=== PATIENT | female | born 1965 | race Caucasian/White ===

== ENCOUNTER 2022-09-17 11:15 | Outpatient (OUT) | payer OTHER, SELFPAY ==
[2022-09-17 12:16] LABS: Basophils Percent Auto 0.6 % (0.2-2.0); Eosinophils Absolute Auto 0.1 10^3/uL (0.0-0.7); Eosinophils Percent Auto 2.1 % (0.9-7.0); Hematocrit 38.3 % (36.0-48.0); Hemoglobin 12.3 g/dL (12.0-16.0); Immature Granulocytes Abs Auto 0.01 10^3/uL (0.00-0.03); Immature Granulocytes Pct Auto 0.3 % (0.0-0.5); Lymphocytes Absolute Auto 1.2 10^3/uL (1.2-3.8); Lymphocytes Percent Auto 36.7 % (20.5-60.0); Mean Corpuscular HGB Conc 32.1 g/dL (29.9-35.2); Mean Corpuscular Hemoglobin 30.3 pg (26.7-34.0); Mean Corpuscular Volume 94.3 fL (81.0-99.0); Mean Platelet Volume 10.6 fL (9.5-13.5); Monocytes Absolute Auto 0.3 10^3/uL (0.3-0.8); Monocytes Percent Auto 8.3 % (1.7-12.0); Neutrophils Absolute Auto 1.7 10^3/uL (1.4-6.5); Platelet Count 184 10^3/uL (150-450); Red Blood Count 4.06 10^6/uL (4.20-5.40); Red Cell Distribution Width 12.7 % (11.0-15.0); White Blood Count 3.3 10^3/uL (4.0-11.0)
[2022-09-17 12:24] LABS: Alanine Aminotransferase 36 U/L (14-59); Albumin Globulin Ratio 1.1; Albumin Level 4.1 g/dL (3.4-5.0); Alkaline Phosphatase 86 U/L (46-116); Anion Gap 10.2; Aspartate Amino Transferase 27 U/L (15-37); Bilirubin Total 0.7 mg/dL (0.2-1.0); Calcium 9.4 mg/dL (8.5-10.1); Carbon Dioxide 28.7 mmol/L (21.0-32.0); Chloride 104 mmol/L (98-107); Chol HDL Ratio 3.7; Cholesterol 200 mg/dL (<=200); Estimated GFR (African America >60 (>=60); Estimated GFR (Non-African Ame >60 (>=60); Globulin 3.8 g/dL; Glucose 92 mg/dL (74-106); HDL Cholesterol 54 mg/dL (40-60); LDL Cholesterol Calculated 122.8 mg/dL; Potassium 3.9 mmol/L (3.5-5.1); Sodium 139 mmol/L (136-145); Total Protein 7.9 g/dL (6.4-8.2); Triglycerides 116 mg/dL (<=150); VLDL CHOLESTEROL 23.2 mg/dL
[2022-09-17 12:43] LABS: Estimated Average Glucose 103 mg/dL; Glycohemoglobin A1C 5.2 % (4.5-6.2)
== END 2022-09-17 11:16 ==
PROVIDERS: PCP Family Medicine; Visit Provider Family Medicine
DX: Z00.00 Encounter for general adult medical examination without abnormal findings (principal)
CPT/HCPCS: 36415; 80053; 80061; 83036; 83540; 84436; 84443; 84481; 85025

== ENCOUNTER 2022-11-24 12:54 | Outpatient (OUT) | payer OTHER, SELFPAY ==
--- NOTE | 2022-11-24 12:58 | MM_ITS ---
Patient: ELVIS JONES Exam Date: 11/24/2022 : 1965 Gender:F Ordering : DR Lavell Russell . Admission #: [id number] Family : Order #: [id number] CLICK HERE TO VIEW EXAM RADIOLOGY REPORT PROCEDURE: MM TOMOSYNTHESIS SCREENING BI COMPARISON: MG MAMM SCREEN 3D JIMI CAD, 11/17/2021. MG MAMM SCREEN 3D JIMI CAD, 07/28/2020. MG MAMM SCREEN JIMI W CAD, 04/19/2018. MG MAMM JIMI SCRN W CAD DIG, 02/21/2013. INDICATIONS: Screening Calculator Name NCI Breast Cancer Risk Assessment Tool 5 Year Breast Cancer Risk 2.80% Lifetime Breast Cancer Risk 16.50% Personal Breast Cancer No Personal Ovarian Cancer No Treatments None Family Cancers Mother with breast cancer at age ~60; Brother with stomach cancer at age ~30. LOCATION: [facility] BREAST COMPOSITION: Extremely dense, which lowers the sensitivity of mammography. FINDINGS: DIAGNOSTIC CATEGORY 1--NEGATIVE. RIGHT BREAST: No significant suspicious finding. No significant change has occurred. LEFT BREAST: No significant suspicious finding. No significant change has occurred. RECOMMENDATIONS: ROUTINE MAMMOGRAM AND CLINICAL EVALUATION IN 12 MONTHS. PLEASE NOTE: A NORMAL MAMMOGRAM DOES NOT EXCLUDE THE POSSIBILITY OF BREAST CANCER. A CLINICALLY SUSPICIOUS PALPABLE LUMP SHOULD BE BIOPSIED. Dictated by: Danyel Arias M.D. on 11/24/2022 at 13:46 Approved by: Danyel Arias M.D. on 11/24/2022 at 13:47
== END 2022-11-24 12:55 | disposition home or self-care (01) ==
LOC: MAMMO 12:54
PROVIDERS: PCP Family Medicine; Visit Provider Family Medicine
DX: Z12.31 Encounter for screening mammogram for malignant neoplasm of breast (principal); Z80.3 Family history of malignant neoplasm of breast; Z80.0 Family history of malignant neoplasm of digestive organs
CPT/HCPCS: 77063; 77067

== ENCOUNTER 2023-09-20 11:09 | Outpatient (OUT) | payer OTHER, SELFPAY ==
[2023-09-20 11:29] LABS: Basophils Percent Auto 0.5 % (0.2-2.0); Eosinophils Absolute Auto 0.1 10^3/uL (0.0-0.7); Eosinophils Percent Auto 1.3 % (0.9-7.0); Hematocrit 40.4 % (36.0-48.0); Hemoglobin 13.2 g/dL (12.0-16.0); Immature Granulocytes Abs Auto 0.01 10^3/uL (0.00-0.03); Immature Granulocytes Pct Auto 0.3 % (0.0-0.5); Lymphocytes Absolute Auto 1.2 10^3/uL (1.2-3.8); Mean Corpuscular HGB Conc 32.7 g/dL (29.9-35.2); Mean Corpuscular Hemoglobin 30.3 pg (26.7-34.0); Mean Corpuscular Volume 92.9 fL (81.0-99.0); Mean Platelet Volume 10.6 fL (9.5-13.5); Monocytes Absolute Auto 0.3 10^3/uL (0.3-0.8); Neutrophils Absolute Auto 2.2 10^3/uL (1.4-6.5); Neutrophils Percent Auto 58.9 % (43.0-75.0); Platelet Count 181 10^3/uL (150-450); Red Blood Count 4.35 10^6/uL (4.20-5.40); Red Cell Distribution Width 12.4 % (11.0-15.0); White Blood Count 3.7 10^3/uL (4.0-11.0)
[2023-09-20 11:42] LABS: Estimated Average Glucose 105 mg/dL; Glycohemoglobin A1C 5.3 % (4.5-6.2)
[2023-09-20 12:09] LABS: Alanine Aminotransferase 38 U/L (14-59); Albumin Globulin Ratio 1.2; Albumin Level 4.2 g/dL (3.4-5.0); Alkaline Phosphatase 101 U/L (46-116); Anion Gap 12.1; Aspartate Amino Transferase 24 U/L (15-37); BUN Creatinine Ratio 17.8; Bilirubin Total 0.7 mg/dL (0.2-1.0); Calcium 9.4 mg/dL (8.5-10.1); Carbon Dioxide 29.3 mmol/L (21.0-32.0); Chloride 102 mmol/L (98-107); Chol HDL Ratio 4.3; Cholesterol 249 mg/dL (<=200); Estimated GFR (African America >60 (>=60); Estimated GFR (Non-African Ame 56 (>=60); Free T3 2.18 pg/mL (2.18-3.98); Globulin 3.6 g/dL; Glucose 87 mg/dL (74-106); HDL Cholesterol 58 mg/dL (40-60); Potassium 4.4 mmol/L (3.5-5.1); Sodium 139 mmol/L (136-145); Total Protein 7.8 g/dL (6.4-8.2); Triglycerides 109 mg/dL (<=150); VLDL CHOLESTEROL 21.8 mg/dL
== END 2023-09-20 11:10 | disposition home or self-care (01) ==
PROVIDERS: PCP Family Medicine; Visit Provider Family Medicine
DX: Z00.00 Encounter for general adult medical examination without abnormal findings (principal); E78.5 Hyperlipidemia, unspecified; R53.83 Other fatigue; R73.09 Other abnormal glucose; I10 Essential (primary) hypertension; D64.9 Anemia, unspecified; E03.9 Hypothyroidism, unspecified
CPT/HCPCS: 36415; 80053; 80061; 83036; 83540; 84436; 84443; 84481; 85025

== ENCOUNTER 2023-11-28 08:02 | Outpatient (OUT) | payer OTHER, SELFPAY ==
--- NOTE | 2023-11-28 08:04 | MM_ITS ---
Patient Name: ELVIS JONES MR#: [id number] : 1965 Exam Date: 11/28/2023 Ordering Doctor: DR Lavell Russell . RADIOLOGY REPORT PROCEDURE: MM TOMOSYNTHESIS SCREENING BI COMPARISON: MM TOMOSYNTHESIS SCREENING BI, 11/24/2022. MG MAMM SCREEN 3D JIMI CAD, 11/17/2021. INDICATIONS: Screening Calculator Name NCI Breast Cancer Risk Assessment Tool 5 Year Breast Cancer Risk 2.90% Lifetime Breast Cancer Risk 16.10% Personal Breast Cancer No Personal Ovarian Cancer No Treatments None Family Cancers Mother with breast cancer at age ~60; Brother with stomach cancer at age ~30. LOCATION: [facility] BREAST COMPOSITION: The breasts are extremely dense, which lowers the sensitivity of mammography. FINDINGS: DIAGNOSTIC CATEGORY 1--NEGATIVE. NO CHANGE FROM COMPARISON ASSESSMENT. Scattered benign-appearing lymph nodes are present. RIGHT BREAST: No significant suspicious finding. LEFT BREAST: No significant suspicious finding. RECOMMENDATIONS: ROUTINE MAMMOGRAM AND CLINICAL EVALUATION IN 12 MONTHS. PLEASE NOTE: A NORMAL MAMMOGRAM DOES NOT EXCLUDE THE POSSIBILITY OF BREAST CANCER. A CLINICALLY SUSPICIOUS PALPABLE LUMP SHOULD BE BIOPSIED. Dictated by: Garcia Carvajal MD on 11/28/2023 at 09:01 Approved by: Garcia Carvajal MD on 11/28/2023 at 09:02
--- OUTSIDE RECORDS SUMMARY | 2023-11-28 08:20 | XMS_ITS | CCD ---
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 Phone Yashira Alvarez Primary Care Physician Unavailable Primary Care Provider Unavailabl e DREW, DR AC Attending Unavailable DREW, DR AC Consulting Unavailable JYOTHIY, DR AC Primary Care Unavailable JYOTHIY, DR AC Admitting Unavailable ZIEBER, DR DANYEL Messer Consulting Unavailable JYOTHIY, DR AC Consulting Unavailable DREW, DR AC Primary Care Unavailable DREW, DR AC Admitting Unavailable DREW, DR AC Attending Unavailable HOY, DR AC Consulting Unavailable JYOTHIY, DR AC Primary Care Unavailable HOY, DR AC Admitting Unavailable HOY, DR AC Attending Unavailable HOY, DR AC Consulting Unavailable DREW, DR AC Primary Care Unavailable DREW, DR AC Admitting Unavailable DREW, DR AC Attending Unavailable Unavailable Primary Care Provider Unavailabl e Problems Active Problems Problem Classification Problem Date Documented Date Episodic/Chronic Allergic reactions (2 sources) Eczema 06-08-2021 Episodic Esophageal disorders (2 sources) Gastroesophageal reflux disease 06-08-2021 Chronic Neoplasms of unspecified nature or uncertain behavior (3 sources) Neoplasm of uncertain behavior of skin; Translations: [Neoplasm of uncertain behavior of skin] Onset: 07-07-2021 Episodic Other screening for suspected conditions (not mental disorders or infectious disease) (4 sources) Encounter for screening mammogram for malignant neoplasm of breast; Translations: [ENC SCR MAMMO MALIG NEOPLASM BREAST] Onset: 11-17-2021 Episodic Other skin disorders (1 source) Senile hyperkeratosis; Translations: [Other seborrheic keratosis] Onset: 07-14-2021 Episodic Residual codes; unclassified (1 source) Family history of malignant neoplasm of breast; Translations: [FAMILY HX MALIG NEOPLASM OF BREAST] Onset: 11-18-2021 Episodic Residual codes; unclassified (1 source) Family history of malignant neoplasm of digestive organs; Translations: [[facility] MALIG NEOPLASM DIGESTIV ORGN] Onset: 11-18-2021 Episodic Unclassified (2 sources) Body mass index 20-24 - normal 06-10-2021 Unclassified (1 source) Seborrheic keratosis 07-14-2021 Past or Other Problems Problem Classification Problem Date Documented Da te Episodic/Chronic Other liver diseases (4 sources) Abnormal levels of other serum enzymes; Translations: [ABNORMAL LEVELS OTHER SERUM ENZYMES] Onset: 06-10-2021 Episodic Results Test Name Value Interpretation Reference Range Facil ity MG MAMM SCREEN 3D JIMI CADon 11-17-2021 MG MAMM SCREEN 3D JIMI CAD Patient: MARIAA JONES. Exam Date: 11/17/2021 : 1965 Gender:F Ordering : DR YASHIRA ALVAREZ . Admission #: [id number] Family : Order #: [id number] CLICK HERE TO VIEW EXAM RADIOLOGY REPORT PROCEDURE: MAMMOGRAM SCREENING 3D BILATERAL CAD COMPARISON: MG MAMM SCREEN 3D JIMI CAD, 07/28/2020. MG MAMM SCREEN JIMI W CAD, 04/19/2018. INDICATIONS: Screening mammography Calculator Name NCI Breast Cancer Risk Assessment Tool 5 Year Breast Cancer Risk 2.70% Lifetime Breast Cancer Risk 16.80% Personal Breast Cancer No Personal Ovarian Cancer No Treatments None Family Cancers Mother with breast cancer at age 60; Brother with stomach cancer at age 30. LOCATION: [facility] BREAST COMPOSITION: Extremely dense, which lowers the sensitivity of mammography. FINDINGS: DIAGNOSTIC CATEGORY 2--BENIGN FINDING: RIGHT BREAST: No significant suspicious finding. No significant change has occurred. LEFT BREAST: No significant suspicious finding. Scattered benign-appearing lymph nodes are present. No significant change has occurred. RECOMMENDATIONS: ROUTINE MAMMOGRAM AND CLINICAL EVALUATION IN 12 MONTHS. PLEASE NOTE: A NORMAL MAMMOGRAM DOES NOT EXCLUDE THE POSSIBILITY OF BREAST CANCER. A CLINICALLY SUSPICIOUS PALPABLE LUMP SHOULD BE BIOPSIED. Dictated by: Danyel Arias M.D. on 11/17/2021 at 15:15 Approved by: Danyel Arias M.D. on 11/17/2021 at 15:21 Normal [facility] Ambulatory Visit Summaryon 0 07-14-2021 Ambulatory Visit Summary JOSE LUIS JONESINA M :1965 Visit Date:07/14/2021 Ambulatory Visit Instructions Your Diagnosis Seborrheic keratosis Your Care Team Attending Physician - RACHEL PAYNE, Rafi Messer Primary Care Physician - Yashira Alvarez MD Procedures Performed Excisional biopsy (07/07/2021), Extraction of wisdom tooth, Vaginal hysterectomy. Discharge Vitals Temperature (Temporal Artery) 36.3 ?C Allergies No Known Allergies No Known Medication Allergies Problems Ongoing - Any problem that you are currently receiving treatment for. 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 History of Present Illness 1 week s/p excisional biopsy of verrucous lesion of forehead, pathology with seborrheic keratosis; doing well, no pain or drainage. Review of Systems ROS - Provider Constitutional: no fever, no sweats, no weight loss. Eyes: no glasses, no blurred vision, no visual loss. ENMT: no dentures, no hoarseness, no swallowing difficulties, no hearing loss, no ear infection(s), no nose bleeds. Cardiovascular: normal blood pressure, no chest pain, regular heartbeat, no heart murmur. Respiratory: no shortness of breath, no cough, no asthma, no wheezing. Gastrointestinal: no nausea, no vomiting, no diarrhea, no constipation, no blood in stool, no change in bowel habits, no abdominal pain, no hepatitis. Genitourinary: no kidney stones, no urine infection, no dysuria. Musculoskeletal: no pain, no weakness. Skin: no changing moles, no rash, no skin lumps. Neurologic: no seizures, no epilepsy, no headache. Psychiatric: no emotional or psychiatric problem. Heme/Lymph: no bleeding problems, no anemia, no blood clots, no transfusions. Allergy/Immunologic: no swollen lymph nodes/glands, no IV drug abuse. Other: Additional ROS info: Except as noted in the above Review of Systems and in the History of Present Illness, all other systems have been reviewed and are negative or noncontributory. Physical Exam Vitals & Measurements T: 36.3 ?C(Temporal Artery) skin: incision healing well, no erythema or ecchymoses. Assessment/Plan 1. Seborrheic keratosis (L82.1: Other seborrheic keratosis) doing well, sutures removed, call with problems/questions. 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 Medications No active medications Allergies No Known Allergies No Known Medication Allergies Social History Alcohol - Denies Alcohol Use, 06/10/2021 Substance Abuse - Denies Substance Abuse, 06/10/2021 Tobacco Never (less than 100 in lifetime) Tobacco Use:. Never Smokeless Tobacco Use:., 06/10/2021 Family History Cardiac arrhythmia: Mother. Dementia: Father. Hypertension: Mother. NF - Neurofibromatosis: Father and Brother. Primary malignant neoplasm of female breast: Mother. Primary malignant neoplasm of prostate: Father. Immunizations Vaccine Date Status Comments influenza virus vaccine, inactivated - Not Given Patient Refuses Normal [facility] Comment on above: Result Comment: Elec tronically Signed By: Rafi FORD MD\.br\Date and Time Signed: 07/14/21 14:33 EDT Pathology Noteon 07-10-2021 Pathology Note [id number]# [id number]:127 Normal [facility] Ambulatory Visit Summaryon 0 07-07-2021 Ambulatory Visit Summary MARIAA JONES :1965 Visit Date:07/07/2021 Ambulatory Visit Instructions Your Care Team Attending Physician - Rafi FORD MD Primary Care Physician - Yashira Alvarez MD Procedures Performed Extraction of wisdom tooth, Vaginal hysterectomy. What to do next Scheduled Follow-Up Appointments Tuesday 2:00 PM EDT With: Rafi FORD MD Where: General Surgery Rachel/Yimi Barnett Normal [facility] General Surgery Office/Clini c Noteon 07-07-2021 General Surgery Office/Clinic Note Chief Complaint in-office excisional biopsy HPI Staff Presents for in-office excisional biopsy neoplasm of forehead. History of Present Illness patient here for excisional biopsy of forehead lesion, no change since recent evaluation. Physical Exam skin: 5 mm verrucous lesion mid forehead Procedure patient brought to the procedure room, placed in supine position, area prepped and draped in sterile fashion; anesthetized with 1 % lidocaine; lesion excised in elliptical fashion down to subcutaneous fat; total length 5 mm, closed with interrupted 5-0 nylon sutures; tolerated well; ebl < 2 ml; sterile dressing applied. Assessment/Plan 1. 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 Medications No active medications Allergies No Known Allergies No Known Medication Allergies Social History Alcohol - Denies Alcohol Use, 06/10/2021 Substance Abuse - Denies Substance Abuse, 06/10/2021 Tobacco Never (less than 100 in lifetime) Tobacco Use:. Never Smokeless Tobacco Use:., 06/10/2021 Family History Cardiac arrhythmia: Mother. Dementia: Father. Hypertension: Mother. NF - Neurofibromatosis: Father and Brother. Primary malignant neoplasm of female breast: Mother. Primary malignant neoplasm of prostate: Father. Immunizations Vaccine Date Status Comments influenza virus vaccine, inactivated - Not Given Patient Refuses Normal [facility] Comment on above: Result Comment: Elec tronically Signed By: RACHEL PAYNE, Rafi Avila\Date and Time Signed: 07/07/21 15:13 EDT LIVER PROFILEon 06-16-2021 Albumin [Mass/Vol] 4.1 g/dL Normal 3.5-5.0 [facility] Comment on above: Performed By: #### L IVER #### [facility] [address] [place] [address] Dr. Leora Agrawal Albumin/Globulin [Mass ratio] 1.3 {ratio} Normal [facility] Comment on above: Performed By: #### L IVER #### [facility] [address] [address] [address] Leora Agrawal ALP [Catalytic activity/Vol] 104 U/L Normal 38-126 [facility] Comment on above: Performed By: #### L IVER #### [facility] [address] [address] [address] Leora Agrawal ALT [Catalytic activity/Vol] 41 U/L Normal 9-52 [facility] Comment on above: Performed By: #### L IVER #### [facility] [address] [address] [address] Leora Agrawal AST [Catalytic activity/Vol] 31 U/L Normal 14-36 [facility] Comment on above: Performed By: #### L IVER #### [facility] [address] [place] [address] Dr. Leora Agrawal BILI, CONJUGATED 0.1 mg/dL Normal 0.0-0.3 [facility] Comment on above: Performed By: #### L IVER #### [facility] [address] [place] [address] Dr. Leora Agrawal Bilirubin [Mass/Vol] 0.5 mg/dL Normal 0.2-1.3 [facility] Comment on above: Performed By: #### L IVER #### [facility] [address] [place] [address] Dr. Leora Agrawal Globulin (S) [Mass/Vol] 3.2 g/dL Normal [facility] Comment on above: Performed By: #### L IVER #### [facility] [address] [address] [address] Leora Agrawal Protein [Mass/Vol] 7.3 g/dL Normal 6.1-8.2 [facility] Comment on above: Performed By: #### L IVER #### [facility] [address] [address] [address] Leora Agrawal HEPATITIS PANEL, ACUTEon HBsAg Screen Negative Normal Negative [facility] Comment on above: Performed By: #### H EPACUT ####[facility] [address] [id number]. Leora Nghia Hep A Ab, IgM Negative Normal Negative [facility] Comment on above: Performed By: #### H EPACUT ####[facility] [address] [place], [place] [address]We. Lexielynne Agrawal Hep B Core Ab, IgM Negative Normal Negative [facility] Comment on above: Performed By: #### H EPACUT ####[facility] [address] [place], [place] [address]Oe. Leora Agrawal Hep C Virus Ab <0.1 Normal 0.0-0.9 [facility] Comment on above: Result Comment: Nega tive: < 0.8 Indeterminate: 0.8 - 0.9 Positive: > 0.9 . The CDC recommends that a positive HCV antibody result be followed up with a HCV Nucleic Acid Amplification test (365285). Effective August 03, 2021 Hepatitis Panel (4) will be made non-orderable. [facility] offers order code [id number] Acute Hepatitis. Performed By: #### H EPACUT ####[facility] [address] [id number] Agrawal AMMONIAon 06-10-2021 Ammonia (P) [Mass/Vol] ug/dL Critically low 10-30 [facility] Comment on above: Performed By: #### A MM #### [facility] [address] [address] [address] 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 Discharge Vitals Temperature (Temporal Artery) 36.5 ?C Heart Rate (Peripheral) 72 Respiratory Rate 16 Blood Pressure 102/72 Height 165.1 cm Height 165.1 cm Weight 64.2 kg Weight 64.2 kg BMI 23.55 What to do next Scheduled Follow-Up Appointments Tuesday 1:40 PM EDT With: Rafi FORD MD Where: General Surgery [facility] CBC AUTO DIFFon 05-28-2021 BASO # 0.0 103/ul Normal 0.0-0.1 [facility] Comment on above: Performed By: #### C BC #### [facility] [address] [place] [address] Dr. Leora Agrawal Basophils/100 WBC (Bld) 0.6 % Normal 0.2-2.0 [facility] Comment on above: Performed By: #### C BC #### [facility] [address] [address] [address] Leora Agrawal EO # 0.1 103/ul Normal 0.0-0.7 [facility] Comment on above: Performed By: #### C BC #### [facility] [address] [place] [address] Dr. Leora Agrawal Eosinophils/100 WBC (Bld) 4.1 % Normal 0.9-7.0 [facility] Comment on above: Performed By: #### C BC #### [facility] [address] [place] [address] Dr. Leora Agrawal Erythrocyte distribution width (RBC) [Ratio] 12.3 % Normal 11.0-15.0 [facility] Comment on above: Performed By: #### C BC #### [facility] [address] [place] [address] Dr. Leora Agrawal Hematocrit (Bld) [Volume fraction] 39.5 % Normal 36.0-48.0 [facility] Comment on above: Performed By: #### C BC #### [facility] [address] [place] [address] Dr. Leora Agrawal Hemoglobin (Bld) [Mass/Vol] 12.7 g/dL Normal 12.0-16.0 [facility] Comment on above: Performed By: #### C BC #### [facility] [address] [place] [address] Dr. Leora Agrawal IG # 0.01 10e3/ul Normal 0.00-0.03 [facility] Comment on above: Performed By: #### C BC #### [facility] [address] [place] [address] Dr. Leora Agrawal IG % 0.3 % Normal 0.0-0.5 [facility] Comment on above: Performed By: #### C BC #### [facility] [address] [place] [address] Dr. Leora Agrawal LYMPH # 0.8 103/ul Critically low 1.2-3.8 [facility] Comment on above: Performed By: #### C BC #### [facility] [address] [place] [address] Dr. Leora Agrawal Lymphocytes/100 WBC (Bld) 23.8 % Normal 20.5-60.0 [facility] Comment on above: Performed By: #### C BC #### [facility] [address] [place] [address] Dr. Leora Agrawal MANUAL DIFF REQ NO Normal [facility] Comment on above: Performed By: #### C BC #### [facility] [address] [place] [address] Dr. Leora Agrawal MCH (RBC) [Entitic mass] 30.0 pg Normal 26.7-34.0 [facility] Comment on above: Performed By: #### C BC #### [facility] [address] [place] [address] Dr. Leora Agrawal MCHC (RBC) [Mass/Vol] 32.2 g/dL Normal 29.9-35.2 [facility] Comment on above: Performed By: #### C BC #### [facility] [address] [place] [address] Dr. Leora Agrawal MCV (RBC) [Entitic vol] 93.4 fL Normal 81.0-99.0 [facility] Comment on above: Performed By: #### C BC #### [facility] [address] [place] [address] Dr. Leora Agrawal MONO # 0.4 103/ul Normal 0.3-0.8 [facility] Comment on above: Performed By: #### C BC #### [facility] [address] [place] [address] Dr. Leora Agrawal Monocytes/100 WBC (Bld) 10.3 % Normal 1.7-12.0 [facility] Comment on above: Performed By: #### C BC #### [facility] [address] [place] [address] Dr. Leora Agrawal NEUT # 2.1 103/ul Normal 1.4-6.5 [facility] Comment on above: Performed By: #### C BC #### [facility] [address] [place] [address] Dr. Leora Agrawal Neutrophils/100 WBC (Bld) 60.9 % Normal 43.0-75.0 [facility] Comment on above: Performed By: #### C BC #### [facility] [address] [place] [address] Dr. Leora Agrawal Platelet mean volume (Bld) [Entitic vol] 10.6 fL Normal 9.5-13.5 [facility] Comment on above: Performed By: #### C BC #### [facility] [address] [address] [address] Leora Agrawal PLT 198 103/ul Normal 150-450 [facility] Comment on above: Performed By: #### C BC #### [facility] [address] [address] [address] Leora Agrawal RBC 4.23 106/ul Normal 4.20-5.40 [facility] Comment on above: Performed By: #### C BC #### [facility] [address] [address] [address] Leora Agrawal WBC 3.4 103/ul Critically low 4.0-11.0 [facility] Comment on above: Performed By: #### C BC #### [facility] [address] [place] [address] Dr. Leora Agrawal FREE THYROXINE INDEX T7on FTI 3.57 Normal [facility] Comment on above: Performed By: #### T SH, CMP, LIPID, T7 #### [facility] [address] [place] [address] Dr. Leora Agrawal T3U 35.0 % Normal 23.5-40.5 [facility] Comment on above: Performed By: #### T SH, CMP, LIPID, T7 #### [facility] [address] [place] [address] Dr. Leora Agrawal T4 [Mass/Vol] 10.20 ug/dL Normal 5.53-11.00 [facility] Comment on above: Performed By: #### T SH, CMP, LIPID, T7 #### [facility] [address] [place] [address] Dr. Leora Agrawal GLYCOHEMOGLOBIN A1Con 2021 ADA RECOMMENDATION ADA THERAPEUTIC TARGET 6.0 - 7.0 ACTION SUGGESTED > 7.0 Normal [facility] Comment on above: Performed By: #### A 1C #### [facility] [address] [place] [address] Dr. Leora Agrawal Glucose [Mass/Vol] 108 mg/dL Normal [facility] Comment on above: Performed By: #### A 1C #### [facility] [address] [address] [address] Leora Agrawal HbA1c (Bld) [Mass fraction] 5.4 % Normal <=6.0 [facility] Comment on above: Performed By: #### A 1C #### [facility] [address] [address] [address] Leora Agrawal IRONon 05-28-2021 Iron [Mass/Vol] 49.0 ug/dL Normal 37.0-170.0 [facility] Comment on above: Performed By: #### I LOIS #### [facility] [address] [address] [address] Leora Agrawal LIPID PROFILEon 05-28-2021 CHOL-HDL RATIO NORM SEE BELOW Normal [facility] Comment on above: Result Comment: 3.3 - 4.4 LOW RISK 4.4 - 7.1 AVERAGE RISK 7.1 - 11.0 MODERATE RISK >11.0 HIGH RISK Performed By: #### T SH, CMP, LIPID, T7 #### [facility] [address] [address] [address] Leora Agrawal Cholesterol [Mass/Vol] 160 mg/dL Normal <=200 [facility] Comment on above: Performed By: #### T SH, CMP, LIPID, T7 #### [facility] [address] [address] [address] Leora Agrawal Cholesterol in HDL [Mass/Vol] 47 mg/dL Normal [facility] Comment on above: Performed By: #### T SH, CMP, LIPID, T7 #### [facility] [address] [address] [address] Leora Agrawal Cholesterol in LDL [Mass/Vol] 95.6 mg/dL Normal [facility] Comment on above: Performed By: #### T SH, CMP, LIPID, T7 #### [facility] [address] [address] [address] Leora Agrawal Cholesterol.total/Cho lesterol in HDL [Mass ratio] 3.4 {ratio} Normal [facility] Comment on above: Performed By: #### T SH, CMP, LIPID, T7 #### [facility] [address] [address] [address] Leora Agrawal HDL NORMAL > or = 60 mg/dl - LOW CARDIOVASCULAR RISK <40 mg/dl - HIGH CARDIOVASCULAR RISK Normal [facility] Comment on above: Performed By: #### T SH, CMP, LIPID, T7 #### [facility] [address] [address] [address] Leora Agrawal LDL CALC NORMAL SEE BELOW Normal [facility] Comment on above: Result Comment: <100 mg/dl OPTIMAL 100 - 129 mg/dl NEAR OR ABOVE OPTIMAL 130 - 159 mg/dl BORDERLINE HIGH 160 - 189 mg/dl HIGH >190 mg/dl VERY HIGH Performed By: #### T SH, CMP, LIPID, T7 #### [facility] [address] [address] [address] Leora Agrawal Triglyceride [Mass/Vol] 87 mg/dL Normal <=150 [facility] Comment on above: Performed By: #### T SH, CMP, LIPID, T7 #### [facility] [address] [address] [address] Leora Agrawal VLDL CALC 17.4 mg/dL Normal [facility] Comment on above: Performed By: #### T SH, CMP, LIPID, T7 #### [facility] [address] [address] [address] Leora Agrawal PROF 14(COMP METB)on 022 Albumin [Mass/Vol] 4.0 g/dL Normal 3.5-5.0 [facility] Comment on above: Performed By: #### T SH, CMP, LIPID, T7 #### [facility] [address] [place] [address] Dr. Leora Agrawal Albumin/Globulin [Mass ratio] 1.1 {ratio} Normal [facility] Comment on above: Performed By: #### T SH, CMP, LIPID, T7 #### [facility] [address] [address] [address] Leora Agrawal ALP [Catalytic activity/Vol] 131 U/L Critically high 38-126 [facility] Comment on above: Performed By: #### T SH, CMP, LIPID, T7 #### [facility] [address] [address] [address] Leora Agrawal ALT [Catalytic activity/Vol] 66 U/L Critically high 9-52 [facility] Comment on above: Performed By: #### T SH, CMP, LIPID, T7 #### [facility] [address] [place] [address] Dr. Leora Agrawal Anion gap [Moles/Vol] 7.4 mmol/L Normal [facility] Comment on above: Performed By: #### T SH, CMP, LIPID, T7 #### [facility] [address] [address] [address] Leora Agrawal AST [Catalytic activity/Vol] 54 U/L Critically high 14-36 [facility] Comment on above: Performed By: #### T SH, CMP, LIPID, T7 #### [facility] [address] [address] [address] Leora Agrawal Bilirubin [Mass/Vol] 0.4 mg/dL Normal 0.2-1.3 [facility] Comment on above: Performed By: #### T SH, CMP, LIPID, T7 #### [facility] [address] [address] [address] Leora Agrawal Calcium [Mass/Vol] 9.5 mg/dL Normal 8.4-10.2 [facility] Comment on above: Performed By: #### T SH, CMP, LIPID, T7 #### [facility] [address] [address] [address] Leora Agrawal Chloride [Moles/Vol] 103 mmol/L Normal 98-107 [facility] Comment on above: Performed By: #### T SH, CMP, LIPID, T7 #### [facility] [address] [address] [address] Leora Agrawal CO2 [Moles/Vol] 31.7 mmol/L Critically high 22.0-30.0 [facility] Comment on above: Performed By: #### T SH, CMP, LIPID, T7 #### [facility] [address] [address] [address] Leora Agrawal Creatinine [Mass/Vol] 0.79 mg/dL Normal 0.52-1.04 [facility] Comment on above: Performed By: #### T SH, CMP, LIPID, T7 #### [facility] [address] [address] [address] Leora Agrawal EGFR-AF GREENLANDIC >60 Normal >=60 [facility] Comment on above: Performed By: #### T SH, CMP, LIPID, T7 #### [facility] [address] [address] [address] Leora Agrawal EGFR-NON AF [place] >60 Normal >=60 [facility] Comment on above: Performed By: #### T SH, CMP, LIPID, T7 #### [facility] [address] [place] [address] Dr. Leora Agrawal Globulin (S) [Mass/Vol] 3.6 g/dL Normal [facility] Comment on above: Performed By: #### T SH, CMP, LIPID, T7 #### [facility] [address] [place] [address] Dr. Leora Agrawal Glucose [Mass/Vol] 91 mg/dL Normal 74-106 [facility] Comment on above: Performed By: #### T SH, CMP, LIPID, T7 #### [facility] [address] [place] [address] Dr. Leora Agrawal Potassium [Moles/Vol] 4.1 mmol/L Normal 3.4-5.0 [facility] Comment on above: Performed By: #### T SH, CMP, LIPID, T7 #### [facility] [address] [place] [address] Dr. Leora Agrawal Protein [Mass/Vol] 7.6 g/dL Normal 6.1-8.2 [facility] Comment on above: Performed By: #### T SH, CMP, LIPID, T7 #### [facility] [address] [place] [address] Dr. Leora Agrawal Sodium [Moles/Vol] 138 mmol/L Normal 137-145 [facility] Comment on above: Performed By: #### T SH, CMP, LIPID, T7 #### [facility] [address] [place] [address] Dr. Leora Agrawal Urea nitrogen [Mass/Vol] 13.0 mg/dL Normal 7.0-17.0 [facility] Comment on above: Performed By: #### T SH, CMP, LIPID, T7 #### [facility] [address] [address] [address] Leora Agrawal Urea nitrogen/Creatinine [Mass ratio] 16.5 mg/mg Normal [facility] Comment on above: Performed By: #### T SH, CMP, LIPID, T7 #### [facility] [address] [place] [address] Dr. Leora Agrawal Physician Referralon 022 Physician Referral [id number] Normal [facility] TSHon 05-28-2021 TSH 1.917 uIU/mL Normal 0.470-4.680 [facility] Comment on above: Performed By: #### T SH, CMP, LIPID, T7 #### [facility] [address] [place] [address] Dr. Leora Agrawal TSH RANGE SEE BELOW Normal [facility] Comment on above: Result Comment: <0.3 4 UIU/ml HYPERTHYROID 0.34-5.60 UIU/ml EUTHYROID >5.60 UIU/ml HYPOTHYROID Performed By: #### T SH, CMP, LIPID, T7 #### [facility] [address] [place] [address] Dr. Leora Agrawal Vital Signs Date Time Vital Sign Value Performing Clinician Neelima litmanny 07-14-2021 14:14-0400 Body temperature 97.34 [degF] Rafi FORD [facility] [place] Encounters Encounter Date Encounter Type Care Provider Facility Start: 04-13-2022 Letter encounter Tena pettit Start: 11-17-2021 End: 11-18-[address] YASHIRA ALVAREZ Facility: Start: 10-19-2021 Letter encounter Tena pettit Start: 07-14-2021 End: 07-14-2021 Patient encounter procedure Rafi FORD [facility] Start: 07-07-2021 End: 07-07-2021 Patient encounter procedure Rafi FOLEYL [facility] Start: 06-17-2021 Encounter for genera l adult medical examination without abnormal findings DR YASHIRA ALVAREZ [facility] Start: 06-16-2021 End: 06-17-[address] YASHIRA ALVAREZ Facility:[facility] Start: 06-16-2021 End: 06-17-2021 Encounter for general adult medical examination without abnormal findings DR YASHIRA ALVAREZ Facility:[facility] Start: 06-10-2021 End: 06-11-[address] YASHIRA ALVAREZ Facility:[facility] Start: 05-28-2021 End: 05-29-[address] YASHIRA ALVAREZ Facility:[facility] Procedures Date Procedure Procedure Detail Performing Clinician Start: 07-07-2021 Excisional biopsy Donald FOLEYL Comment on above: forehead Extraction of wisdom tooth Rhett FOLEYL Vaginal hysterectomy Rafi FOLEYL Plan of Treatment Date Care Activity Detail Author Start: 01-02-2022 Influenza vaccination Influenza Vacc ine (#1) [facility] Start: 2015 Measurement of occul t blood in single stool specimen FIT [facility] Start: 2015 Screening for malign ant neoplasm of breast Mammography [facility] Start: 2015 Screening for malign ant neoplasm of colon CRC Screening [facility] Start: 2015 Shingles (RZV) Vacci ne (1 of 2) Shingles (RZV) Vaccine (1 of 2) [facility] Start: 2010 Cholesterol [Mass/vo lume] in Serum or Plasma Cholesterol [facility] Start: 2005 Screening for malign ant neoplasm of breast Mammography [facility] Start: 1986 Screening for malign ant neoplasm of cervix Pap Smear [facility] Start: 1983 Hepatitis C screening Hepatitis C An tibody [facility] Start: 1983 Tetanus + diphtheria + acellular pertussis vaccine (product[facility] Start: 01-06-1980 HIV screening HIV Test [facility] Start: 1965 COVID-19 Vaccine (#1) COVID-19 Vacci ne (#1) [facility] Start: 1965 Screening for malign ant neoplasm of colon Colonoscopy [facility] Immunizations Immunization Date Immunization Notes Care Provider Fa ramirez NEGATED: Highlighted row has not occurred!06-10-2021 influenza virus vaccine, unspecified formulation Rafi FORD [facility] [place] Payers Date Payer Category Payer Unknown [employer] - OTHER COMMERCIAL INSURANCE OTHER [id number] 2018-Present [address] [address] [place] [address] Indemnity [id number] 1965 Unknown [id number] 3 1965 Unknown [id number] 3 1965 Unknown [id number] 3 1965 Unknown [id number] 3 Unknown [id number] Social History Date Type Detail Facility Start: 06-10-2021 Tobacco smoking status Never smoked tobacco (finding) [facility] [place] Tobacco smoking status Never [facility] [place] Sex Assigned At Female [facility] [place] Tobacco smoking status WYIS Tobacco smoking consumption unknown [facility] Start: 1965 Sex Assigned At Not on file [facility] Clinical Note 06-10-2021 Note Date & Type Note Facility 03-09-2022 Note Chief Complaint consultation for growth on forehead HPI Staff 56 year old female presents on consultation from Dr. Alvarez for growth on forehead. Present for several months. Denies this being painful. Occasionally itches. Denies bleeding unless she scratches area too much. Review of Systems PHQ Score Initial Depression Screen Score: 0 ROS - Provider Constitutional: no fever, no sweats, no weight loss. Eyes: no glasses, no blurred vision, no visual loss. ENMT: no dentures, no hoarseness, no swallowing difficulties, no hearing loss, no ear infection(s), no nose bleeds. Cardiovascular: normal blood pressure, no chest pain, regular heartbeat, no heart murmur. Respiratory: no shortness of breath, no cough, no asthma, no wheezing. Gastrointestinal: no nausea, no vomiting, no diarrhea, no constipation, no blood in stool, no change in bowel habits, no abdominal pain, no hepatitis. Genitourinary: no kidney stones, no urine infection, no dysuria. Musculoskeletal: no pain, no weakness. Skin: no changing moles, no rash, no skin lumps. Neurologic: no seizures, no epilepsy, no headache. Psychiatric: no emotional or psychiatric problem. Heme/Lymph: no bleeding problems, no anemia, no blood clots, no transfusions. Allergy/Immunologic: no swollen lymph nodes/glands, no IV drug abuse. Other: Additional ROS info: Except as noted in the above Review of Systems and in the History of Present Illness, all other systems have been reviewed and are negative or noncontributory. Physical Exam Vitals & Measurements T: 36.5 ?C(Temporal Artery) HR: 72(Peripheral) RR: 16 BP: 102/72 HT: 165.1 cm HT: 165.1 cm WT: 64.2 kg WT: 64.2 kg BMI: 23.55 HEENT: normal conjunctiva, sclera clear, no scleral icterus, EOM intact, PERRLA, Musculoskeletal: normal gait, digits and nails without infection, nodes, cyanosis, clubbing. Skin: no rashes, left upper forehead with 5 mm raised, verrucous lesion; no ulceration or bleeding, no pigmentation change, no ulcers, no subcutaneous nodules, induration. Psychiatric/Neuro: oriented to time, place, person, judgement normal, affect appropriate for age, insight intact, no focal deficits. Tests: , review of old records completed, Discussed surgical options, risks, and possible complications with patient. Assessment/Plan 1. 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 Medications No active medications Allergies No Known Allergies No Known Medication Allergies Social History Alcohol - Denies Alcohol Use, 06/10/2021 Substance Abuse - Denies Substance Abuse, 06/10/2021 Tobacco Never (less than 100 in lifetime) Tobacco Use:. Never Smokeless Tobacco Use:., 06/10/2021 Family History Cardiac arrhythmia: Mother. Dementia: Father. Hypertension: Mother. NF - Neurofibromatosis: Father and Brother. Primary malignant neoplasm of female breast: Mother. Primary malignant neoplasm of prostate: Father. Immunizations Vaccine Date Status Comments influenza virus vaccine, inactivated - Not Given Patient Refuses [facility] Comment on above: Result Comment: Elec tronically Signed By: Rafi FORD MD\.br\Date and Time Signed: 06/10/21 14:25 EST Evaluation + Plan note Note Date & Type Note Facility Evaluation + Plan note Future Appointments Appointment Date:07/14/2021 02:00:00 PM Scheduled Provider:Rafi FORD MD Location:[facility] Appointment Type: Post Op 15 [facility] Hospital course Narrative Note Date & Type Note Facility Hospital course Narrative No data available for this section [facility] Discharge instructions Note Date & Type Note Facility Hospital Discharge instructions No data available for this section [facility] [place] Summary Purpose Family History No Family History Records FoundNo Family History Records Found Advance Directives No Advanced Directives Records FoundNo Advanced Directives Records Found Additional Source Comments INFORMATION SOURCE (unrecogn ized section and content) DATE CREATED AUTHOR 07/15/2021 [facility] DATE CREATED AUTHOR AUTHOR'S ORGANIZ ATION 11/24/2021 [facility] FOR RECORDS PERTAINING TO PATIENTS WHO ARE OR HAVE BEEN ENROLLED IN A CHEMICAL DEPENDENCY/SUBSTANCEABUSE PROGRAM, SOME INFORMATION MAY BE OMITTED. This clinical summary was aggregated from multiple sources. Caution should be exercised in using it in the provision of clinical care. This summary normalizes information from multiple sources, and as a consequence, information in this document may materially change the coding, format and clinical context of patient data. In addition, data may be omitted in some cases. CLINICAL DECISIONS SHOULD BE BASED ON THE PRIMARY CLINICAL RECORDS. [facility] provides no warranty or guarantee of the accuracy or completeness of information in this document.
== END 2023-11-28 08:03 | disposition home or self-care (01) ==
LOC: MAMMO 08:02
PROVIDERS: PCP Family Medicine; Visit Provider Family Medicine
DX: Z12.31 Encounter for screening mammogram for malignant neoplasm of breast (principal); Z80.3 Family history of malignant neoplasm of breast; Z80.0 Family history of malignant neoplasm of digestive organs
CPT/HCPCS: 77063; 77067